=== PATIENT | male | born 1995 | race African-American/Black ===

== ENCOUNTER 2022-12-31 21:04 | Emergency (ER) | payer SELFPAY ==
[2022-12-31 21:08] VITALS: BP 148/97; PULSE 53; RESP 20; TEMP 36.4; O2SAT 100; BMI 21.4
--- NOTE | 2022-12-31 21:21 | ED.ALLEREA ---
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 Related Data Allergies Allergy/AdvReac Type Severity Reaction Status Date / Time shrimp Allergy Anaphylaxis Verified 12/31/22 21:07 Review of Systems Review of Systems: Yes all other systems are reviewed and are negative [facility] Social History Social History Alcohol intake: never Smoked in Last 30 Days: No Use of substances other than those prescribed or required for medical reasons: No Advance Directives: No Advance Directives Information Provided: No Physical Exam ED Vital Signs: Vital Signs - 24 hr 12/31/22 21:08 12/31/22 21:35 Temperature 97.5 F 98.6 F Pulse Rate 53 57 Respiratory Rate 20 19 Blood Pressure 148/97 H 158/100 H Pulse Oximetry 100 100 Oxygen Delivery Method Room Air Room Air BMI result Body Mass Index 21.4 Appearance: Alert. Oriented X3. No acute distress. Eyes: PERRLA, No Nystagmus ENT: Pharynx normal. Oral Mucosa moist uvula normal lips tongue normal no stridor Neck: Normal inspection. Neck supple. CVS: Normal heart rate and rhythm. Pulses normal. Respiratory: No respiratory distress. Equal air entry bilateral, no wheezing/rales/rhonchi Abdomen: Soft and nontender. Skin: Skin warm and dry. Normal skin color. Normal skin turgor. Neuro: Oriented X 3. Medications Administered Discontinued Medications Generic Name Dose Route Start Last Admin Trade Name Freq PRN Reason Stop Dose Admin Diphenhydramine HCl 50 mg 12/31/22 21:24 12/31/22 21:33 Diphenhydramine Hcl 50 Mg/Ml Vial IVPUSH 12/31/22 21:25 50 mg ONCE ONE Administration Famotidine 20 mg 12/31/22 21:24 12/31/22 21:33 Famotidine/Pf 20 Mg/2 Ml Vial IVPUSH 12/31/22 21:25 20 mg ONCE ONE Administration Methylprednisolone Sodium Succinate 125 mg 12/31/22 21:24 12/31/22 21:33 Methylprednisolone Sod Succ 125 Mg/2 Ml Vial IVPUSH 12/31/22 21:25 125 mg ONCE ONE Administration Medical Decision Making Medical Decision Making [facility] Narrative: Patient with mild allergic reaction to shrimp which was in the rice but he did not ea shrimps as such symptoms improved after IV Solu-Medrol and Benadryl discharge patient home advised to continue use Benadryl as needed Discharge Plan Discharge Clinical Impression: Allergic reaction Patient Disposition: Home, Self-Care Instructions: General Allergic Reaction (ED) Additional Instructions: Take Benadryl 2 tablets every 6 hours as needed for the allergic reaction Report to the ER if gets worse/shortness of breath/throat pain
[2022-12-31] MEDS: methylPREDNISolone Sod Succ 125 MG/2 ML VIAL IVPUSH (21:33)
[2022-12-31] MEDS: Famotidine/PF 20 MG/2 ML VIAL IVPUSH (21:33)
[2022-12-31] MEDS: diphenhydrAMINE HCL 50 MG/ML VIAL IVPUSH (21:33)
[2022-12-31 21:35] VITALS: BP 158/100; PULSE 57; RESP 19; TEMP 37; O2SAT 100
[2022-12-31 22:00] VITALS: BP 141/87; PULSE 42; RESP 18; O2SAT 99
== END 2022-12-31 22:29 | disposition home or self-care (01) ==
PROVIDERS: Emergency Provider Internal Medicine
DX: T78.1XXA Other adverse food reactions, not elsewhere classified, initial encounter (principal); X58.XXXA Exposure to other specified factors, initial encounter
CPT/HCPCS: 96374; 96375; 99284; J1200; J2930